=== PATIENT | male | born 2000 | race Asian ===

== ENCOUNTER 2024-01-05 03:04 | Emergency (ER) | payer OTHER ==
[~2024-01-05] VITALS: Ht 170.2 cm; Wt 68.0 kg
[2024-01-05] MEDS ORDERED: AMOX/CLAVULANATE 875 MG TABLET ONE (03:40)
[2024-01-05] MEDS ORDERED: TDAP [DIPH/PERTUSSIS/TET] 0.5 ML VIAL IM ONE (03:40)
[2024-01-05] MEDS ORDERED: AMOX-430 PO (03:44)
[2024-01-05 03:51] VITALS: BP 115/80; TEMP 97.9; O2SAT 98
[2024-01-05] MEDS: BACITRACIN ZINC OINT PACKET 1 EA PACKET TP ONE (03:51)
[2024-01-05] MEDS: TDAP [DIPH/PERTUSSIS/TET] 0.5 ML VIAL IM ONE (03:51)
[2024-01-05] MEDS: AMOX/CLAVULANATE 875 MG TABLET PO ONE (03:51)
== END 2024-01-05 03:55 | disposition home or self-care (01) ==
LOC: ER 03:10
DX: S61.250A Open bite of right index finger without damage to nail, initial encounter (principal); W55.01XA Bitten by cat, initial encounter; Y93.89 Activity, other specified; Y92.89 Other specified places as the place of occurrence of the external cause; Y99.8 Other external cause status; Z91.018 Allergy to other foods
CPT/HCPCS: 90715